=== PATIENT | female | born 1975 | race Caucasian/White ===

== ENCOUNTER 2016-05-26 22:05 | Emergency (ER) | payer MEDICAID ==
[~2016-05-26] VITALS: Ht 152.4 cm; Wt 78.5 kg
[~2016-05-26 22:05] MED LIST: HYDR-3498 PO; IBUP-1542 PO; NO MEDS
[2016-05-26 22:10] VITALS: Ht 152.4 cm; Wt 78.5 kg
[2016-05-27] MEDS ORDERED: DIPHENHYDRAMINE 25 MG CAP PO ONE (00:30)
[2016-05-27] MEDS ORDERED: METHYLPREDNISOLONE 125 MG INJ IM ONE (00:30)
[2016-05-27] MEDS ORDERED: FAMOTIDINE 20 MG TAB PO ONE (00:30)
--- NOTE | 2016-05-27 01:03 | RADRPT ---
PROCEDURE: XR Chest. CLINICAL INDICATION: cough TECHNIQUE: Single frontal chest x-ray. COMPARISON: None. FINDINGS: There is minimal prominence of the lung interstitium which could be secondary to bronchitis or asthm a. No focal lung consolidation is seen. Heart size is within normal limits. IMPRESSION: Minimal prominence of the lung interstitium which could be secondary to bronchitis or asthma. RPTAT: HJES .Jake Lindsey MD, MD Date Time Electronically viewed and signed by .Jake Lindsey MD, on 05/27/2016 01:03 .S/
[2016-05-27] MEDS ORDERED: FAMO-18 PO (01:17)
[2016-05-27] MEDS ORDERED: PRED20TA PO (01:17)
[2016-05-27] MEDS ORDERED: ALBU8.5H3 INH (01:17)
[2016-05-27] MEDS ORDERED: BEN25 PO (01:17)
--- NOTE | 2016-05-27 01:29 | ERD ---
ER Documentation Chief Complaint Date/Time DATE: 05/27/16 TIME: 01:25 Chief Complaint rash over her arms just now HPI 41-year-old female with no significant past medical history presents the ED complaining of a a rash that started 2 days ago. States that it is present in her bilateral arms, abdomen and back. States that it is itchy and not painful. Reports that she has a dry cough. Denies any chest pain, shortness of breath, abdominal pain. States that she does have a dry cough that has been going on for the last 3 days. Denies any sick contacts. Denies any new use of soaps, detergents, exposure to pets or insects. Denies any allergies to medications. Denies taking any new medications. ROS All systems reviewed and are negative except as per history of present illness. Medications Home Meds Active Scripts Diphenhydramine Hcl* (Benadryl*) 25 Mg Cap, 25 MG PO Q6, #30 CAP Prov:DORY FOUNTAIN PA-C 05/27/16 Famotidine* (Pepcid*) 20 Mg Tablet, 20 MG PO BID for 4 Days, #30 TAB Prov:DORY FOUNTAIN PA-C 05/27/16 Prednisone* (Prednisone*) 20 Mg Tab, 40 MG PO DAILY for 4 Days, TAB Prov:DORY FOUNTAIN PA-C 05/27/16 Albuterol Sulfate* (Proair HFA*) 8.5 Gm Hfa.aer.ad, 2 PUFF INH Q4, #1 INHALER Prov:DORY FOUNTAIN PA-C 05/27/16 Hydrocodone Bit-Acetaminophen* (Starr*) 5-325 Mg Tab, 1 TAB PO Q6 Y for PAIN, # 20 TAB Prov:THALIA DEL VALLE NP 11/28/15 Ibuprofen* (Motrin*) 600 Mg Tab, 600 MG PO Q6H Y for PAIN AND OR ELEVATED TEMP, #30 TAB Prov:THALIA DEL VALLE NP 11/28/15 Reported Medications [none] Unknown Strength No Conflict Check 11/28/15 [None] No Conflict Check 09/10/11 [No Meds] No Conflict Check 08/08/11 [None] No Conflict Check 05/06/10 Allergies Allergies: Coded Allergies: No Known Allergy (Verified , 09/10/11) PMhx/Soc History of Surgery: No Anesthesia Reaction: No Hx Neurological Disorder: No Hx Respiratory Disorders: No Hx Cardiac Disorders: No Hx Psychiatric Problems: No Hx Miscellaneous Medical Probl: No Hx Alcohol Use: No Hx Substance Use: No Hx Tobacco Use: No Physical Exam Vitals Vital Signs Date Time Temp Pulse Resp B/P Pulse Ox O2 Delivery O2 Flow Rate FiO2 05/27/16 01:38 98.0 88 20 122/66 100 Room Air 05/26/16 22:10 97.5 64 20 114/57 99 Physical Exam Const: Mjt-uyk-aujyispav, well-nourished. In no acute distress. Head: Atraumatic, normocephalic Eyes: Normal Conjunctiva without injection. No purulent discharge. PERRL. EOMI ENT: Normal external ear. Ear canal without erythema. Tympanic membrane pearly smith without effusion or bulging. Nasal canal clear with normal turbinates. Moist oropharynx without tonsillar exudates. Non-erythematous pharynx. Uvula midline. No drooling. No trismus. Neck: Full range of motion. No meningismus. No cervical lymphadenopathy. Resp: Clear to auscultation bilaterally. No wheezing, rhonchi, rales, or crackles. No accessory muscle use. No retractions. Cardio: Regular rate and rhythm. No murmurs, rubs or gallops. Abd: Soft, non tender, non distended. Normal bowel sounds. No palpable masses. No rebound tenderness. No guarding. Skin: No petechiae, purpura. Convoluted blanching erythematous rash is noted in the bilateral forearms, trunk. No surrounding edema, purulent discharge, fluctuance, induration, bleeding noted. No lymphatic streaking. Back: No midline tenderness. No CVA tenderness. Ext: No cyanosis, or edema. Neur: Awake and alert. Psych: Normal Mood and Affect Results 24 hrs Current Medications Medications (Trade) Dose Ordered Sig/Ilan Route PRN Reason Start Time Stop Time Status Last Admin Dose Admin Methylprednisolone Sodium Succinate (Solu-Medrol) 125 mg ONCE ONCE IM 05/27/16 00:30 05/27/16 00:31 DC 05/27/16 00:14 Diphenhydramine HCl (Benadryl) 25 mg ONCE ONCE PO 05/27/16 00:30 05/27/16 00:31 DC 05/27/16 00:14 Famotidine (Pepcid) 20 mg ONCE ONCE PO 05/27/16 00:30 05/27/16 00:31 DC 05/27/16 00:14 Procedures/[facility] This is a 41-year-old female with no significant past medical history presents to the ED complaining of a rash present on her bilateral arms and trunk. Patient also reports dry cough. Patient is afebrile and nontoxic-appearing. Patient has normal vital signs. A chest x-ray was ordered to further evaluate patient. PROCEDURE: XR Chest. CLINICAL INDICATION: cough TECHNIQUE: Single frontal chest x-ray. COMPARISON: None. FINDINGS: There is minimal prominence of the lung interstitium which could be secondary to bronchitis or asthma. No focal lung consolidation is seen. Heart size is within normal limits. IMPRESSION: Minimal prominence of the lung interstitium which could be secondary to bronchitis or asthma. RPTAT: HJES .Jake Lindsey MD, MD Date Time Electronically viewed and signed by .Jake Lindsey MD, MD on 05/27/2016 01:03 Patient's rash is consistent with urticaria however etiology is known at this time since patient denies any allergic reaction to any creams, ointments, lotions, detergents, insects, pets, medications. Low suspicion for allergic contact dermatitis, urticaria, insect bites, cutaneous candidiasis, eczema, scabies, tinea infection, erythema multiforme, psoriasis, SJS, TEN, sepsis, cellulitis, necrotizing fascitis, pneumonia, atypical NM, pleural effusion, CHF , pneumothorax, cardiac dysrhythmias, or other emergent conditions. Patient was treated here in the ED with 125 mg IM Solu-Medrol, famotidine, Benadryl with improvement of her symptoms. Discharge medications: Famotidine, Benadryl, Pro-air, Prednisone Follow up with primary care physician in 1-2 days for allergy testing. Instructed patient to return to the ED sooner for any worsening symptoms. Patient's questions were answered. Patient understood and agreed with discharge plan. Patient discharged stable. Departure Diagnosis: Primary Impression: Urticaria Additional Impression: URI (upper respiratory infection) URI type: unspecified URI Qualified Code: J06.9 - Upper respiratory tract infection, unspecified type Condition: Stable Patient Instructions: Hives, Uri, Viral, No Abx (Adult) Referrals: [facility] YOU HAVE RECEIVED A MEDICAL SCREENING EXAM AND THE RESULTS INDICATE THAT YOU DO NOT HAVE A CONDITION THAT REQUIRES URGENT TREATMENT IN THE EMERGENCY DEPARTMENT. FURTHER EVALUATION AND TREATMENT OF YOUR CONDITION CAN WAIT UNTIL YOU ARE SEEN IN YOUR DOCTORS OFFICE WITHIN THE NEXT 1-2 DAYS. IT IS YOUR RESPONSIBILITY TO MAKE AN APPOINTMENT FOR FOLOW-UP CARE. IF YOU HAVE A PRIMARY DOCTOR --you should call your primary doctor and schedule an appointment IF YOU DO NOT HAVE A PRIMARY DOCTOR YOU CAN CALL OUR PHYSICIAN REFERRAL HOTLINE AT IF YOU CAN NOT AFFORD TO SEE A PHYSICIAN YOU CAN CHOSE FROM THE FOLLOWING [facility] [address] [facility] [address] [facility] [address] [facility] [address] [facility] [address] [facility]. [address] [facility] [place] [facility] YOU HAVE RECEIVED A MEDICAL SCREENING EXAM AND THE RESULTS INDICATE THAT YOU DO NOT HAVE A CONDITION THAT REQUIRES URGENT TREATMENT IN THE EMERGENCY DEPARTMENT. FURTHER EVALUATION AND TREATMENT OF YOUR CONDITION CAN WAIT UNTIL YOU ARE SEEN IN YOUR DOCTORS OFFICE WITHIN THE NEXT 1-2 DAYS. IT IS YOUR RESPONSIBILITY TO MAKE AN APPOINTMENT FOR FOLOW-UP CARE. IF YOU HAVE A PRIMARY DOCTOR --you should call your primary doctor and schedule and appointment IF YOU DO NOT HAVE A PRIMARY DOCTOR YOU CAN CALL OUR PHYSICIAN REFERRAL HOTLINE AT . IF YOU CAN NOT AFFORD TO SEE A PHYSICIAN YOU CAN CHOSE FROM THE FOLLOWING [facility] INSTITUTIONS: [facility] [address] [place] [address] [facility] [address] [place] [address] [facility] [address] [place] [address] [facility] URGENT CARE/SPECIALTIES Additional Instructions: Visite a raman luciana zaragoza para un EXAMEN.Regrese a estas instalaciones si no se mejora carol esperbamos o carol le dijimos. DORY FOUNTAIN PA-C May 27, 2016 01:29
[2016-05-27 01:38] VITALS: BP 122/66; PULSE 88; RESP 20; TEMP 98
== END 2016-05-27 01:38 | disposition home or self-care (01) ==
LOC: FTE 22:05
DX: L50.9 Urticaria, unspecified (principal); J06.9 Acute upper respiratory infection, unspecified
CPT/HCPCS: 71010; 96372; J2930; Z7502; Z7610

== ENCOUNTER 2019-02-02 18:08 | Emergency (ER) | payer MEDICAID ==
[~2019-02-02] VITALS: Wt 81.7 kg
[~2019-02-02 18:08] MED LIST changes: +ALBU8.5H8 INH; +AMOX500C2 PO; +BEN25 PO; +FAMO-96 PO; +PRED20TA PO
[2019-02-02] MEDS ORDERED: ONDANSETRON (ODT) 4 MG TAB ODT STA (18:38)
[2019-02-02] MEDS ORDERED: HYDROCODONE/APAP (5/325) TAB PO ONE (19:00)
[2019-02-02 21:33] VITALS: BP 102/60; PULSE 78; RESP 16
== END 2019-02-02 21:34 | disposition home or self-care (01) ==
LOC: E/R 18:08
DX: J32.9 Chronic sinusitis, unspecified (principal); R40.2142 Coma scale, eyes open, spontaneous, at arrival to emergency department; R40.2252 Coma scale, best verbal response, oriented, at arrival to emergency department; R40.2362 Coma scale, best motor response, obeys commands, at arrival to emergency department; F43.9 Reaction to severe stress, unspecified
CPT/HCPCS: 70450; 81025; Z7502; Z7610